=== PATIENT | female | born 1940 | race Caucasian/White ===

== ENCOUNTER → 2019-05-10 | Outpatient (CLI) | payer OTHER | LOC: CAT 12:56 | DX: Z13.6 Encounter for screening for cardiovascular disorders (principal); E78.00 Pure hypercholesterolemia, unspecified; I25.10 Atherosclerotic heart disease of native coronary artery without angina pectoris ==

== ENCOUNTER → 2019-05-23 | Outpatient (CLI) | payer OTHER ==
--- NOTE | 2019-05-23 12:05 | EXE ---
[facility] Leroy [place] [address] STRESS ECHOCARDIOGRAM Name: JAZMÍN CORREIA Room [facility]: [facility] [id number] ������������� Admission: 05/23/19 ������������� Attend Phys: Kane Campa, Discharge: ��� ������������� ��� Date of : 38 Date of Service: 05/23/19 1204 �� Report #: [id number] �������� ��������������������������������������������[id number] THIS REPORT FOR: //name// APPROVED REPORT Study performed: 05/23/2019 08:24:05 Exam: Stress Echocardiogram Indication: Increase calcium score Patient Location: Out-Patient Stress Nurse: Mirella SERRANO Status: routine Ht: 5 ft 1 in HR: 88 bpm BP: 132/68 mmHg Rhythm: NSR Medical History Medical History: COPD Allergies: No known drug allergies Cardiac Risk Factors: Hyperlipidemia, Smoking Procedure The patient underwent an Exercise Stress Test using the [place] Protocol. Blood pressure, heart rate, and EKG were monitored. An Echocardiogram was performed by regulatory technician in four stages in quad fashion. At peak stress, four selected images were obtained and placed side by side with resting images for comparison. Stress Test Details Stress Test: Exercise stress testing was performed using a [place] protocol. HR Resting HR: 88 bpm Max Heart Rate (APMHR): 141 bpm Max HR Achieved: 134 bpm Target HR (85% APMHR): 119 bpm % of APMHR: 95 Recovery HR: 86 bpm HR response to stress: Normal HR response to stress BP Resting BP: 132/68 mmHg Max BP: 174/58 mmHg Recovery BP: 120/64 mmHg BP response to stress: Normal blood pressure response to stress. [facility] [address] [place] [address] STRESS ECHOCARDIOGRAM Name: CORREIAJAZMÍN LEA Room #: REG CL Jannette#: [id number] ������������� Admission: 05/23/19 ������������� Attend Phys: Kane Campa, Discharge: ��� ������������� ��� Date of : 38 Date of Service: 05/23/19 1204 �� Report #: [id number] �������� ��������������������������������������������[id number] ECG Clinical Reason for Termination: Dyspnea, Maximal effort Stress Symptoms: Dyspnea Exercise duration: 3 min sec Highest Stage Achieved: Stage 1: 1.7 mph at 10% grade. Exercise capacity: 4.60 METs Pre-Stress Echo The resting Echocardiogram showed normal left ventricular contractility with an estimated Ejection Fraction of about 60-65%. No significant valvular abnormalities. Post-Stress Echo The stress Echocardiogram showed normal left ventricular contractility with an estimated Ejection Fraction of about >70%. Other Information Study Quality: Good ��������������������������������������������� <ELECTRONICALLY SIGNED> ���������������������������������������� By: Kane Campa MD, [facility] ��������������������������������������������� 05/23/19 1204 03 120 Kane Campa MD, FACC /INF
== END ==
LOC: ULTRA 07:58 → CV 07:58
DX: I65.23 Occlusion and stenosis of bilateral carotid arteries (principal); I25.10 Atherosclerotic heart disease of native coronary artery without angina pectoris; J44.9 Chronic obstructive pulmonary disease, unspecified; Z88.8 Allergy status to other drugs, medicaments and biological substances